=== PATIENT | male | born 1990 | race Caucasian/White ===

== ENCOUNTER 2018-04-30 09:33 | Emergency (ER) | payer OTHER ==
[~2018-04-30] VITALS: Ht 188 cm; Wt 86.2 kg
[~2018-04-30 09:33] MED LIST: NOHOMEMEDICATIONS; SUBOXONE 2 MG-1 EACH SL
[2018-04-30 11:00] VITALS: BP 125/78
== END 2018-04-30 11:00 | disposition home or self-care (01) ==
LOC: M.ERS 09:33
DX: S71.111A Laceration without foreign body, right thigh, initial encounter (principal); F17.210 Nicotine dependence, cigarettes, uncomplicated; Z88.0 Allergy status to penicillin; Z88.2 Allergy status to sulfonamides; Z88.8 Allergy status to other drugs, medicaments and biological substances; W26.8XXA Contact with other sharp object(s), not elsewhere classified, initial encounter; Y93.89 Activity, other specified; Y92.89 Other specified places as the place of occurrence of the external cause; Y99.8 Other external cause status

== ENCOUNTER 2020-03-15 16:53 | Emergency (ER) | payer OTHER ==
[~2020-03-15] VITALS: Ht 182.9 cm; Wt 81.7 kg
[2020-03-15] MEDS ORDERED: DOXYCYCLINE 10100 MG PO (17:49)
[2020-03-15] MEDS ORDERED: CENTANY30 GM TOP (17:49)
[2020-03-15 17:59] VITALS: BP 110/56
== END 2020-03-15 18:04 | disposition home or self-care (01) ==
LOC: M.ERS 16:53
DX: S40.861A Insect bite (nonvenomous) of right upper arm, initial encounter (principal); L03.113 Cellulitis of right upper limb; F17.210 Nicotine dependence, cigarettes, uncomplicated; Z88.0 Allergy status to penicillin; Z88.2 Allergy status to sulfonamides; Z88.8 Allergy status to other drugs, medicaments and biological substances; W57.XXXA Bitten or stung by nonvenomous insect and other nonvenomous arthropods, initial encounter; Y93.89 Activity, other specified; Y92.89 Other specified places as the place of occurrence of the external cause; Y99.8 Other external cause status